=== PATIENT | male | born 1950 ===

== ENCOUNTER 2024-01-16 18:07 | Inpatient (IN) | payer OTHER ==
[~2024-01-16] VITALS: Ht 175.3 cm; Wt 97.2 kg
[2024-01-16] MEDS ORDERED: LEVO75 PO (19:16)
[2024-01-16] MEDS ORDERED: LOSA-382 PO (19:16)
[2024-01-16] MEDS ORDERED: [UNRECOGNIZED DRUG - OTHER] SQ (19:16)
[2024-01-16] MEDS ORDERED: TRI2515C TP (19:16)
[2024-01-16] MEDS ORDERED: LACT10SO10 PO (19:16)
[2024-01-16] MEDS ORDERED: DOCU-385 PO (19:16)
[2024-01-16] MEDS ORDERED: ATOR20TA PO (19:16)
[2024-01-16] MEDS ORDERED: OMEP20 PO (19:16)
[2024-01-16] MEDS ORDERED: LIDO1ADH72 TP (19:16)
[2024-01-16] MEDS ORDERED: HYDR25TA2 PO (19:16)
[2024-01-16] MEDS ORDERED: ACET-2247 PO (19:16)
[2024-01-16] MEDS ORDERED: CHOL25TA4 PO (19:16)
[2024-01-16] MEDS: MORPHINE SULFATE 2 MG/ML SYRINGE IVP ONE (19:40)
[2024-01-16 20:00] LABS: COVID AG,FIA SOURCE NASAL SWAB
[2024-01-16 20:05] LABS: BASOPHILS % (AUTO) 0.4 % (0.0-2.0); EOSINOPHILS % (AUTO) 4.7 % (1.0-6.0); HEMATOCRIT 39.9 % (41-53); HEMOGLOBIN 13.3 g/dL (13.5-17.5); LYMPHOCYTES # (AUTO) 1.1 K/uL (1.0-4.8); LYMPHOCYTES % (AUTO) 15.4 % (22.0-44.0); MEAN CORPUSCULAR HEMOGLOBIN 30.9 pg (26.0-34.0); MEAN CORPUSCULAR HGB CONC 33.5 G/dL (31.0-37.0); MEAN CORPUSCULAR VOLUME 92 fL (80-100); MONOCYTES # (AUTO) 0.7 K/uL (0.1-1.0); MONOCYTES % (AUTO) 9.7 % (2.0-9.0); NEUTROPHILS # (AUTO) 5.2 K/uL (1.8-7.7); NEUTROPHILS % (AUTO) 69.8 % (40.0-70.0); PLATELET COUNT (AUTO) 153 K/uL (150-450); RED BLOOD CELL COUNT(AUTO) 4.32 MIL/uL (4.50-5.90); RED CELL DISTRIBUTION WIDTH 13.3 % (11.5-14.5); WHITE BLOOD COUNT (AUTO) 7.4 K/uL (4.5-11.0)
[2024-01-16 20:13] LABS: ANION GAP 9 mmol/L (8-16); CALCIUM, TOTAL 8.9 mg/dL (8.8-10.5); CARBON DIOXIDE 30 mmol/L (22-29); CHLORIDE 103 mmol/L (98-107); CREATININE 0.85 mg/dL (0.60-1.30); GLOMERULAR FILTR. RATE CALC > 60 mL/min (>60); GLUCOSE,RANDOM 93 mg/dL (70-110); POTASSIUM 4.1 mmol/L (3.5-5.1); SODIUM SERUM 142 mmol/L (136-145); UREA NITROGEN, BLOOD 18 mg/dL (7-18)
[2024-01-16 20:23] LABS: INFLUENZA TYPE A NEGATIVE FOR TYPE A (NEGATIVE); INFLUENZA TYPE B NEGATIVE FOR TYPE B (NEGATIVE); SARS-COV2 (COVID) ANTIGEN,FIA Negative (Negative)
[2024-01-16 20:30] LABS: B-TYPE NATRIURETIC PEPTIDE 68 pg/mL (0-100)
[2024-01-16 20:38] LABS: ALANINE AMINOTRANSFERASE 19 U/L (12-78); ALBUMIN 3.5 g/dL (3.4-5.0); ALKALINE PHOSPHATASE 95 U/L (46-116); ASPARTATE AMINOTRANSFERASE 18 U/L (15-37); BILIRUBIN,TOTAL 0.5 mg/dL (0.1-1.0); CREATINE KINASE, TOTAL ONLY 161 U/L (39-308); TOTAL PROTEIN, SERUM 6.9 g/dL (6.4-8.2)
[2024-01-16 20:39] LABS: TROPONIN I-HIGH SENSITIVITY 12 ng/L (<76)
[2024-01-16] MEDS ORDERED: BISACODYL 10 MG RECTAL RECTAL SUPPOSITORY PR PRN (21:00)
[2024-01-16] MEDS ORDERED: ZOLPIDEM TARTRATE 5 MG TABLET PO PRN (21:00)
[2024-01-16] MEDS: *CLINICAL-LEVOFLOXACIN IVPB DOSING CLINICAL ONE (21:00)
[2024-01-16] MEDS ORDERED: ACETAMINOPHEN 325 MG TABLET PO PRN (21:00)
[2024-01-16] MEDS ORDERED: MORPHINE SULFATE 2 MG/ML SYRINGE IVP PRN (21:00)
[2024-01-16] MEDS ORDERED: ONDANSETRON HCL 4 MG/2 ML VIAL IVP PRN (21:00)
[2024-01-16] MEDS ORDERED: MAGNESIUM HYDROXIDE SUSPENSION 30 ML UDCUP PO PRN (21:00)
[2024-01-16] MEDS ORDERED: HYDROCODONE/ACETAMINOPHEN 5-325 MG TABLET PO PRN (21:00)
[2024-01-16] MEDS: CefTRIAXone 1 GM/DEXTROSE 50 ML IV ONE (21:12)
[2024-01-16] MEDS: AZITHROMYCIN 500 MG/NS 250 ML IV ONE (21:13)
[2024-01-16] MEDS: DOCUSATE SODIUM 100 MG CAPSULE PO SCH (21:32)
[2024-01-16] MEDS: ATORVASTATIN CALCIUM 20 MG TABLET PO SCH (21:32)
[2024-01-17] MEDS: HEPARIN SODIUM,PORCINE 5,000 UNITS/ML VIAL SQ SCH (00:18)
[2024-01-17 00:40] LABS: APPEARANCE,URINE CLEAR (CLEAR); BILIRUBIN,URINE NEGATIVE (NEGATIVE); COLOR,URINE LIGHT YELLOW (YELLOW); GLUCOSE, URINE (UA) NEGATIVE (NEGATIVE); KETONES,URINE NEGATIVE (NEGATIVE); LEUKOCYTE ESTERASE ,URINE NEGATIVE (NEGATIVE); NITRATE,URINE NEGATIVE (NEGATIVE); OCCULT BLOOD,URINE NEGATIVE (NEGATIVE); PROTEIN,URINE NEGATIVE (NEGATIVE); SPECIFIC GRAVITIY, URINE 1.013 (1.003-1.030); UROBILINOGEN,URINE <=1.0 mg/dL (<=1.0)
[2024-01-17 00:47] LABS: ALCOHOL, URINE DRUG SCREEN NEGATIVE (NEGATIVE); AMPHET/METH SCREEN,URINE NEGATIVE (NEGATIVE); BARBITURATE SCREEN, URINE NEGATIVE (NEGATIVE); BENZODIAZEPINES SCREEN,URINE NEGATIVE (NEGATIVE); CANNABINOID SCREEN,URINE NEGATIVE (NEGATIVE); COCAINE SCREEN,URINE NEGATIVE (NEGATIVE); METHADONE SCREEN, URINE NEGATIVE (NEGATIVE); OPIATE SCREEN,URINE POSITIVE (NEGATIVE); PHENCYCLIDINE SCREEN,URINE NEGATIVE (NEGATIVE)
[2024-01-17 01:30] VITALS: BP 143/81; PULSE 53; RESP 17; TEMP 98; O2SAT 97
[2024-01-17] MEDS: LEVOFLOXACIN 750 MG/D5% WATER 150 ML IV SCH (03:06)
[2024-01-17 04:00] VITALS: BP 142/80; PULSE 52; RESP 18; TEMP 98.1; O2SAT 98
[2024-01-17 07:07] LABS: BASOPHILS % (AUTO) 0.6 % (0.0-2.0); HEMOGLOBIN 13.2 g/dL (13.5-17.5); LYMPHOCYTES # (AUTO) 1.3 K/uL (1.0-4.8); MEAN CORPUSCULAR HEMOGLOBIN 31.2 pg (26.0-34.0); MEAN CORPUSCULAR HGB CONC 33.8 G/dL (31.0-37.0); MEAN CORPUSCULAR VOLUME 92 fL (80-100); MONOCYTES # (AUTO) 0.5 K/uL (0.1-1.0); MONOCYTES % (AUTO) 11.9 % (2.0-9.0); NEUTROPHILS # (AUTO) 2.3 K/uL (1.8-7.7); NEUTROPHILS % (AUTO) 50.5 % (40.0-70.0); PLATELET COUNT (AUTO) 134 K/uL (150-450); RED BLOOD CELL COUNT(AUTO) 4.23 MIL/uL (4.50-5.90); RED CELL DISTRIBUTION WIDTH 13.3 % (11.5-14.5); WHITE BLOOD COUNT (AUTO) 4.5 K/uL (4.5-11.0)
[2024-01-17 07:09] LABS: ANION GAP 7 mmol/L (8-16); CALCIUM, TOTAL 8.5 mg/dL (8.8-10.5); CARBON DIOXIDE 31 mmol/L (22-29); CHLORIDE 104 mmol/L (98-107); CREATININE 0.82 mg/dL (0.60-1.30); GLOMERULAR FILTR. RATE CALC > 60 mL/min (>60); GLUCOSE,RANDOM 83 mg/dL (70-110); POTASSIUM 3.5 mmol/L (3.5-5.1); SODIUM SERUM 142 mmol/L (136-145); UREA NITROGEN, BLOOD 13 mg/dL (7-18)
[2024-01-17 07:19] LABS: TROPONIN I-HIGH SENSITIVITY 16 ng/L (<76)
[2024-01-17] MEDS: HYDROCHLOROTHIAZIDE 25 MG TABLET PO SCH (08:01)
[2024-01-17] MEDS: OMEPRAZOLE 20 MG CAPSULE PO SCH (08:02)
[2024-01-17] MEDS: LEVOTHYROXINE SODIUM 75 MCG TABLET PO SCH (08:02)
[2024-01-17] MEDS: LACTULOSE 20 GM/30 ML SOLUTION UDCUP PO SCH (08:02)
[2024-01-17] MEDS: CHOLECALCIFEROL (VIT D3) 1,000 UNITS [25 MCG] TABLET PO SCH (08:02)
[2024-01-17] MEDS: LOSARTAN POTASSIUM 50 MG TABLET PO SCH (08:02)
[2024-01-17 08:10] VITALS: BP 131/75; PULSE 54; RESP 18; TEMP 97.8; O2SAT 99
[2024-01-17] MEDS ORDERED: PANTOPRAZOLE SODIUM 40 MG DR TABLET PO SCH (09:00)
[2024-01-17 11:30] VITALS: BP 174/83; PULSE 52; RESP 17; TEMP 98.5; O2SAT 98
[2024-01-17 15:48] VITALS: BP 132/78; PULSE 56; RESP 18; TEMP 98.1; O2SAT 99
[2024-01-17 20:00] VITALS: BP 144/75; PULSE 53; RESP 18; TEMP 98.4; O2SAT 97
[2024-01-18] VITALS (7 sets, daily range): BP systolic 120–153; BP diastolic 71–86; PULSE 50–57; RESP 16–20; TEMP 97.7–98.4; O2SAT 96–98
[2024-01-18 05:58] LABS: BASOPHILS % (AUTO) 0.5 % (0.0-2.0); EOSINOPHILS % (AUTO) 3.2 % (1.0-6.0); HEMATOCRIT 41.5 % (41-53); HEMOGLOBIN 14.1 g/dL (13.5-17.5); LYMPHOCYTES # (AUTO) 1.1 K/uL (1.0-4.8); LYMPHOCYTES % (AUTO) 23.1 % (22.0-44.0); MEAN CORPUSCULAR HEMOGLOBIN 31.1 pg (26.0-34.0); MEAN CORPUSCULAR HGB CONC 33.9 G/dL (31.0-37.0); MEAN CORPUSCULAR VOLUME 92 fL (80-100); MONOCYTES # (AUTO) 0.5 K/uL (0.1-1.0); MONOCYTES % (AUTO) 9.9 % (2.0-9.0); NEUTROPHILS % (AUTO) 63.3 % (40.0-70.0); PLATELET COUNT (AUTO) 145 K/uL (150-450); RED BLOOD CELL COUNT(AUTO) 4.52 MIL/uL (4.50-5.90); WHITE BLOOD COUNT (AUTO) 4.8 K/uL (4.5-11.0)
[2024-01-18 06:09] LABS: ANION GAP 4 mmol/L (8-16); CALCIUM, TOTAL 8.9 mg/dL (8.8-10.5); CARBON DIOXIDE 31 mmol/L (22-29); CHLORIDE 102 mmol/L (98-107); CREATININE 0.91 mg/dL (0.60-1.30); GLOMERULAR FILTR. RATE CALC > 60 mL/min (>60); GLUCOSE,RANDOM 115 mg/dL (70-110); POTASSIUM 3.6 mmol/L (3.5-5.1); SODIUM SERUM 137 mmol/L (136-145); UREA NITROGEN, BLOOD 12 mg/dL (7-18)
[2024-01-18] MEDS: AmLODIPine BESYLATE 5 MG TABLET PO SCH (09:03)
[2024-01-19 04:04] VITALS: BP 120/79; PULSE 57; RESP 18; TEMP 97.7; O2SAT 95
[2024-01-19 06:32] LABS: ANION GAP 5 mmol/L (8-16); CARBON DIOXIDE 31 mmol/L (22-29); CHLORIDE 102 mmol/L (98-107); CREATININE 0.97 mg/dL (0.60-1.30); GLOMERULAR FILTR. RATE CALC > 60 mL/min (>60); GLUCOSE,RANDOM 89 mg/dL (70-110); POTASSIUM 3.7 mmol/L (3.5-5.1); SODIUM SERUM 138 mmol/L (136-145); UREA NITROGEN, BLOOD 14 mg/dL (7-18)
[2024-01-19 06:46] LABS: BASOPHILS % (AUTO) 0.5 % (0.0-2.0); EOSINOPHILS % (AUTO) 6.5 % (1.0-6.0); HEMATOCRIT 44.5 % (41-53); LYMPHOCYTES # (AUTO) 1.4 K/uL (1.0-4.8); MEAN CORPUSCULAR HGB CONC 33.8 G/dL (31.0-37.0); MEAN CORPUSCULAR VOLUME 92 fL (80-100); MONOCYTES # (AUTO) 0.7 K/uL (0.1-1.0); MONOCYTES % (AUTO) 9.8 % (2.0-9.0); NEUTROPHILS # (AUTO) 4.4 K/uL (1.8-7.7); NEUTROPHILS % (AUTO) 63.2 % (40.0-70.0); PLATELET COUNT (AUTO) 165 K/uL (150-450); RED BLOOD CELL COUNT(AUTO) 4.84 MIL/uL (4.50-5.90); RED CELL DISTRIBUTION WIDTH 13.5 % (11.5-14.5)
[2024-01-19 07:48] VITALS: BP 134/75; PULSE 53; RESP 17; TEMP 97.6; O2SAT 96
[2024-01-19] MEDS ORDERED: LEVO250S9 PO (11:06)
[2024-01-19] MEDS ORDERED: LEVO-72 PO (11:10)
[2024-01-19 12:05] VITALS: BP 134/73; PULSE 54; RESP 17; TEMP 97.3; O2SAT 96
[2024-01-19 16:09] VITALS: BP 130/76; PULSE 59; RESP 18; TEMP 97.3; O2SAT 97
[2024-01-19 20:20] VITALS: BP 113/73; PULSE 92; RESP 18; TEMP 98.2; O2SAT 93
[2024-01-20 00:11] VITALS: BP 118/56; PULSE 53; RESP 16; TEMP 98.2; O2SAT 93
[2024-01-20 05:05] VITALS: BP 105/64; PULSE 54; RESP 16; TEMP 98.2; O2SAT 97
[2024-01-20 08:48] VITALS: BP 115/58; PULSE 54; RESP 18; TEMP 97.9; O2SAT 96
[2024-01-20] MEDS ORDERED: DOCU-385 PO (12:25)
[2024-01-20] MEDS ORDERED: AMLO-257 PO (12:26)
[2024-01-20] MEDS ORDERED: MAGN-169 PO (12:27)
== END 2024-01-20 18:02 | DRG 190 ==
LOC: EMS 18:07 → EDSEX 18:07 → EDH 01-17 00:02 → 5N 01-17 01:15 → 6S 01-20 05:20
PROVIDERS: ADMIT Internal Medicine; ATTEND Internal Medicine
DX: J44.1 Chronic obstructive pulmonary disease with (acute) exacerbation (principal); J18.9 Pneumonia, unspecified organism; J44.0 Chronic obstructive pulmonary disease with (acute) lower respiratory infection; J43.9 Emphysema, unspecified; R91.1 Solitary pulmonary nodule; Z20.822 Contact with and (suspected) exposure to COVID-19; I10 Essential (primary) hypertension; E03.9 Hypothyroidism, unspecified; E78.5 Hyperlipidemia, unspecified; R00.1 Bradycardia, unspecified; D64.9 Anemia, unspecified; K21.9 Gastro-esophageal reflux disease without esophagitis; K44.9 Diaphragmatic hernia without obstruction or gangrene; Z87.891 Personal history of nicotine dependence; Z88.8 Allergy status to other drugs, medicaments and biological substances
CPT/HCPCS: 71045; 71250; 80048; 80076; 80307; 81003; 82550; 83880; 84443; 84484; 85025; 87804; 93005; 93306; 97110; 97116; 97162; 97167; 97530; 97535; 99285; J0456; J0696; J1644; J1956; J2270; 36415-L1; 36415-TC